=== PATIENT | female | born 1960 | race Caucasian/White ===

== ENCOUNTER 2023-05-25 10:33 | Outpatient (OUT) | payer BC, SELFPAY ==
--- NOTE | 2023-05-25 10:35 | XR_ITS ---
The [address] [address] Patient Name: KATHI JHAVERI MRN: [id number] date: 1960 Sex: F Assigned Patient Location: [facility] Current Patient Location: Accession/Order Number: [id number] Exam Date: 05/25/2023 10:40 Report Date: 05/26/2023 07:28 At the request of: WILLIAM VILLASENOR Procedure: XR finger RT min 2V PROCEDURE: XR finger RT min 2V HISTORY: Pain Of Right Thumb M79.644 COMPARISON: None. FINDINGS: BONES:Mild degenerative changes of the first carpal-metacarpal joints: adjacent tiny corticated ossification is likely sequela of remote injury. No fracture, dislocation, bone lesion. SOFT TISSUES:No visible soft tissue swelling. EFFUSION:None visible. OTHER: Negative. XR/XR finger RT min 2V IMPRESSION: 1. Mild degenerative changes of the first carpal-metacarpal joint. Electronically authenticated by: WILLIAM MCGHEE Date: 05/26/2023 07:28
== END 2023-05-25 10:34 | disposition home or self-care (01) ==
LOC: RAD 10:33
PROVIDERS: Visit Provider Orthopaedic Surgery
DX: M79.644 Pain in right finger(s) (principal)
CPT/HCPCS: 73140